=== PATIENT | female | born 1980 | race Two or more races ===

== ENCOUNTER → 2017-08-22 | Outpatient (CLI) | payer OTHER | END | disposition home or self-care (01) | LOC: RX STUDY 11:15 | DX: N93.0 Postcoital and contact bleeding (principal) ==

== ENCOUNTER → 2018-11-12 | Outpatient (CLI) | payer OTHER | END | disposition home or self-care (01) | LOC: PRENATAL 09:56 | DX: O26.892 Other specified pregnancy related conditions, second trimester (principal); O09.512 Supervision of elderly primigravida, second trimester; O09.92 Supervision of high risk pregnancy, unspecified, second trimester ==

== ENCOUNTER 2019-03-05 14:44 | Inpatient (IN) | payer OTHER ==
[~2019-03-05] VITALS: Ht 160 cm; Wt 86.6 kg
[2019-03-29] MEDS ORDERED: ATABEX DHA 200200 MG PO (14:47)
[2019-03-29] MEDS ORDERED: PRENATABS RX T1 EACH PO (14:48)
[2019-03-29] MEDS ORDERED: PROTONIX40 MG PO (14:48)
[2019-03-29] MEDS ORDERED: SINGULAIR 10MG10 MG PO (14:49)
[2019-04-05] MEDS ORDERED: NAPROXEN500 MG PO (10:21)
== END 2019-04-05 11:00 | disposition home or self-care (01) | DRG 788 ==
LOC: OB/GYN 04-01 18:07 → LDR 04-01 18:07 → OB/GYN 04-02 23:12
PROVIDERS: ADMIT Obstetrics & Gynecology
PROC: 3E0P7VZ Introduction of Hormone into Female Reproductive, Via Natural or Artificial Opening (ICD-10-PCS; 2019-04-01)
PROC: 4A1HXCZ Monitoring of Products of Conception, Cardiac Rate, External Approach (ICD-10-PCS; 2019-04-01)
PROC: 3E033VJ Introduction of Other Hormone into Peripheral Vein, Percutaneous Approach (ICD-10-PCS; 2019-04-02)
PROC: 10D00Z1 Extraction of Products of Conception, Low, Open Approach (ICD-10-PCS; principal; 2019-04-02 21:00)
DX: O82 Encounter for cesarean delivery without indication (principal); O61.0 Failed medical induction of labor; Z3A.39 39 weeks gestation of pregnancy; Z37.0 Single live birth

== ENCOUNTER 2019-03-29 14:08 | Outpatient (CLI) | payer OTHER ==
[2019-03-29] MEDS ORDERED: ATABEX DHA 200200 MG PO (14:47)
[2019-03-29] MEDS ORDERED: PRENATABS RX T1 EACH PO (14:48)
[2019-03-29] MEDS ORDERED: PROTONIX40 MG PO (14:48)
[2019-03-29] MEDS ORDERED: SINGULAIR 10MG10 MG PO (14:49)
== END 2019-03-30 13:05 | disposition home or self-care (01) ==
LOC: OBS/DEL 14:08
DX: O14.03 Mild to moderate pre-eclampsia, third trimester (principal); O47.1 False labor at or after 37 completed weeks of gestation